=== PATIENT | male | born 1985 | race Caucasian/White ===

== ENCOUNTER 2025-09-22 05:58 | Emergency (ER) | payer BC, SELFPAY ==
[2025-09-22 06:07] VITALS: BP 126/88; PULSE 70; TEMP 36.9; O2SAT 96; BMI 35.9
--- OUTSIDE RECORDS SUMMARY | 2025-09-22 06:56 | XMS_ITS | Clinical Summary ---
Author Organization ApplyMap [facility] tem Address [facility] [place]-[id number] [address] [place] [address] Care Team Providers Care Histologist Technologist Name Role Phone Harjinder Salinas MD Primary Care Provider [phone] Allergies No known active allergies Medications MedicationSigDispense QuantityRefillsLast FilledStart DateEnd DateStatus albuterol (PROVENTIL HFA;VENTOLIN HFA) 90 mcg/actuation inhaler Inhale 2 puffs every 6 (six) hours as needed for wheezing or shortness of breath. 1 Inhaler 11101/01/2017Active SYMBICORT 160-4.5 mcg/actuation inhaler INHALE TWO PUFFS BY MOUTH TWICE A DAY 1 Inhaler 10001/08/2019Active Active Problems ProblemNoted DateDiagnosed DateSleep apnea, uejacgevfli44/27/2017Mild intermittent asthma without bnpoafahbuqa47/27/2017Tobacco /27/2017 Family History Medical HistoryRelationNameCommentsDiabetesFatherNo Known ProblemsMotherRelation NameStatusCommentsFatherAliveMotherAlive Social History Tobacco UseTypesPacks/DayYears UsedDateSmoking Tobacco: Every DaySmokeless Tobacco: Former Tobacco Cessation:Ready to Q uit: Not Asked; Counseling Given: Not Answered Alcohol UseStandard Drinks/WeekCommentsNo0 (1 standard drink = 0.6 oz pure alcohol)ChildcareAnswerDate IeyniiidBapncmyugSffswgu18/12/2019EmploymentAnswer Date UmurofqrZvgwowranmKphunwk31/12/2019Purpose - LifeAnswerDate RecordedPurpose and direction in extxSzivqzg98/11/2021ex and Gender InformationValueDate RecordedSex Assigned at BirthNot on fileLegal LqdSsso7506/10/2015 11:34 AM EDT Gender IdentityNot on fileSexual OrientationNot on file Last Filed Vital Signs Vital SignReadingTime TakenCommentsBlood Qkkfxgig802/8710/31/2017 9:56 AM EST Ljmyf828610/31/2017 9:56 AM ESTTemperature--Respiratory Oalx915201/01/2017 9:56 AM ESTOxygen Qkourwbcze45%10/31/2017 9:56 AM ESTInhaled Oxygen Concentration-- Pkftks546.7 kg (255 lb)04/22/2025 9:54 AM QYJIcbeez570.8 cm (5' 10 )04/22/2025 9:54 AM EDTBody Mass Index36.59004/22/2025 9:54 AM EDT Plan of Treatment Health MaintenanceDue DateLast DoneCommentsTobacco Ldcjyutdbq1987 Depression Rzrbxwgky54/31/1999Adult BMI Follow Up Plan2005DTaP,Tdap and Td Vaccines (1 - Tdap)2006Influenza Ffwovjk1907/06/2025dult BMI Screening Tobacco Keydetygh98 Medical Devices Not on file Insurance Care Teams Team MemberRelationshipSpecialtyStart DateEnd Date Harjinder Salinas MD PCP - [facility]11/26/19
--- NOTE | 2025-09-22 07:17 | CT_ITS ---
The [address] [address] Patient Name: KEITH KING MRN: [id number] date: 1985 Sex: M Assigned Patient Location: ED.MAIN Current Patient Location: ED.MAIN Accession/Order Number: [id number] Exam Date: 09/22/2025 07:44 Report Date: 09/22/2025 08:10 At the request of: OLVIN HAMMONDS MD Procedure: CT abdomen pelvis wo con CT ABDOMEN AND PELVIS WITHOUT CONTRAST COMPARISON: None CLINICAL DATA: Right flank pain since yesterday. Spiral axial unenhanced images were obtained through the abdomen and pelvis. This CT exam was performed using one or more following dose reduction techniques: Automated exposure control, adjustment of the mA and/or kV according to patient size, or use of iterative reconstruction technique. Limited cuts through the lung bases show atelectasis and/or scarring. Evaluation of the intra-abdominal organs is slightly limited by the absence of contrast. No calcified gallstones are identified. Fatty infiltration of the liver is suspected. The spleen is slightly prominent measuring 14.8 cm in craniocaudal dimension. The pancreas and adrenal glands show no acute abnormalities. A punctate stone is present at the superior pole the left kidney. There is minor right pelviectasis. There is no significant dilatation though minor periureteral stranding is seen on the right. This may be secondary to a 3 mm stone visualized just proximal to the ureterovesical junction. The abdominal aorta is normal caliber. Tiny abdominal lymph nodes are present. No ascites is seen. The small bowel loops are not dilated. There is mild right-sided colonic stool. The left colon is not as well distended and there are segments of apparent wall thickening. Levoscoliotic curvature and degenerative changes are visualized at the spine. There is also minimal anterolisthesis of L5 with respect to adjacent vertebra due to bilateral L5 pars defects. Images through the pelvis show normal caliber small bowel loops. The appendix is surgically absent. The distal colon is not well distended. There are some sigmoid diverticula, without associated active inflammation. The prostate is top normal in size. The urinary bladder is poorly distended and the wall appears thickened. There are mildly patulous inguinal rings containing fat. There is also atrophy of anterior pelvic wall muscles on the right where there may be some overlying subcutaneous scarring. No ascites is seen. CT/CT abdomen pelvis wo con IMPRESSION: FATTY LIVER. LEFT NEPHROLITHIASIS. DISTAL RIGHT URETERAL STONE WITH MINIMAL ASSOCIATED HYDRONEPHROSIS. UNDER DISTENDED URINARY BLADDER WITH APPARENT WALL THICKENING. DIVERTICULOSIS. Impression dictated by: Patience Conklin M.D. 09/22/2025 8:10 AM Dictation Location: [place] [address] Electronically authenticated by: [id number] Y Date: 09/22/2025 08:10
--- NOTE | 2025-09-22 07:18 | ED.GENADUL1 ---
HPI HPI - General Adult General Chief complaint: Abdominal Pain Stated complaint: R SIDED FLANK PAIN Time Seen by Provider: 09/22/25 07:12 Source: patient Mode of arrival: walk-in Limitations: no limitations History of Present Illness HPI narrative: 40-year-old male presents to the emergency department for right flank and abdominal pain. This started yesterday and was not precipitated by any trauma. The pain is now wrapping around towards the front and he is worried he might have a kidney stone. No gross hematuria or fever. He has been nauseous. His pain comes and goes. Related Data Previous Rx's ?Medication ?Instructions ?Recorded hydrocodone 5 mg-acetaminophen 325 1 tab PO Q6H PRN pain 5 days #20 09/22/25 mg tablet tabs ondansetron 4 mg disintegrating 4 mg PO Q6H PRN nausea and 09/22/25 tablet vomiting #20 tabs tamsulosin 0.4 mg capsule (Flomax) 0.4 mg PO DAILY #7 caps 09/22/25 Allergies Allergy/AdvReac Type Severity Reaction Status Date / Time No Known Drug Allergies Allergy Verified 09/22/25 06:12 Opioid HPI Opioid Management Most Recent Opioid Data: Last Pain Scale 7 Today, 06:07 Review of Systems ROS Narrative A ten point review of systems is negative except as noted above. PFSH PFSH Social History Little interest or pleasure in doing things: not at all Feeling down, depressed, or hopeless: not at all Exam Narrative Exam Narrative: Nurses note and vital signs reviewed General:The patient appears in no apparent distress.Patient is resting comfortably on cart. Skin:Warm, dry, no pallor noted.There is no rash noted. Head:Normocephalic, atraumatic Eye: Normal conjunctiva, no drainage Ears, Nose, Mouth, and Throat: oral mucosa is moist. Nares patent. Cardiovascular:Regular Rate and Rhythm Respiratory:Patient is in no distress, no accessory muscle use, lungs are clear to auscultation, no wheezing, rales or rhonchi Back:non-tender, no CVA tenderness bilaterally to percussion. GI: Soft and nontender. Remote scar from appendectomy present. Musculoskeletal: The patient has no evidence of calf tenderness, no pitting edema, symmetrical pulses noted bilaterally Neurological:A&O, normal speech Psychiatric:Cooperative Constitutional Vital Signs, click to edit/add: Last Vital Signs Temp 98.4 F 09/22/25 06:07 Pulse 70 09/22/25 06:07 Resp 18 09/22/25 06:07 BP 126/88 09/22/25 06:07 Pulse Ox 96 09/22/25 06:07 O2 Del Method Room Air 09/22/25 06:07 Course Vital Signs Vital signs: Vital Signs Temperature 98.4 F 09/22/25 06:07 Pulse Rate 70 09/22/25 06:07 Respiratory Rate 18 09/22/25 06:07 Blood Pressure 126/88 09/22/25 06:07 Pulse Oximetry 96 09/22/25 06:07 Oxygen Delivery Method Room Air 09/22/25 06:07 Temperature 98.4 F 09/22/25 06:07 Pulse Rate 70 09/22/25 06:07 Respiratory Rate 18 09/22/25 06:07 Blood Pressure 126/88 09/22/25 06:07 Pulse Oximetry 96 09/22/25 06:07 Oxygen Delivery Method Room Air 09/22/25 06:07 Medical Decision Making MDM Narrative Medical decision making narrative: 3 mm distal ureteral stone is identified on the right side. He is feeling more comfortable now and is able to be discharged home on Flomax and Cadott and Zofran. Follow-up with urology. Treatment diagnosis and follow-up were discussed with the patient. Differential Diagnosis Differential Diagnosis: Kidney stone, muscle pain Lab Data Lab results reviewed: Yes I reviewed the patient's lab results Labs: Lab Results 09/22/25 09/22/25 Range/Units 07:05 07:25 WBC 8.5 (4.0-11.0) 10^3/uL RBC 5.10 (4.70-6.10) 10^6/uL Hgb 15.4 (14.0-18.0) g/dL Hct 46.7 (42.0-54.0) % MCV 91.6 (80.0-94.0) fL MCH 30.2 (25.9-34.0) pg MCHC 33.0 (29.9-35.2) g/dL RDW 12.8 (11.0-15.0) % Plt Count 215 (150-450) 10^3/uL MPV 8.5 L (9.5-13.5) fL Neut % (Auto) 70.5 (43.0-75.0) % Lymph % (Auto) 17.4 L (20.5-60.0) % [place] % (Auto) 8.3 (1.7-12.0) % Eos % (Auto) 2.3 (0.9-7.0) % Baso % (Auto) 0.8 (0.2-2.0) % Neut # (Auto) 6.0 (1.4-6.5) 10^3/uL Lymph # (Auto) 1.5 (1.2-3.8) 10^3/uL [place] # (Auto) 0.7 (0.3-0.8) 10^3/uL Eos # (Auto) 0.2 (0.0-0.7) 10^3/uL Baso # (Auto) 0.1 (0.0-0.1) 10^3/uL Abs Immat Gran (auto) 0.06 H (0.00-0.03) 10^3/uL Imm/Tot Granulo (auto) 0.7 H (0.0-0.5) % Sodium 141 (136-145) mmol/L Potassium 4.1 (3.5-5.1) mmol/L Chloride 104 (98-107) mmol/L Carbon Dioxide 29.0 (21.0-32.0) mmol/L Anion Gap 12.1 BUN 21.0 H (7.0-18.0) mg/dL Creatinine 0.92 (0.70-1.30) mg/dL Est GFR ( Amer) >60 (>=60 mL/min/1.73m^2) Est GFR (Non-Af Amer) >60 (>=60 mL/min/1.73m^2) BUN/Creatinine Ratio 22.8 Glucose 117 H (74-106) mg/dL Calcium 9.1 (8.5-10.1) mg/dL Urine Color Yellow (YELLOW) Urine Clarity Clear (CLEAR) Urine pH 6.0 (5.0-9.0) Ur Specific [place] 1.020 (1.005-1.025) Urine Protein Negative (NEG/TRACE) mg/dL Urine Glucose (UA) Negative (NEGATIVE) mg/dL Urine Ketones Negative (NEGATIVE) mg/dL Urine Occult Blood Moderate A (NEGATIVE) Urine Nitrite Negative (NEGATIVE) Urine Bilirubin Negative (NEGATIVE) Urine Urobilinogen 1.0 (0.2-1.0) EU/dL Ur Leukocyte Esterase Negative (NEGATIVE) Urine RBC 0-2 (0-2) #/HPF Urine WBC 2-5 A (NONE SEEN) #/HPF Ur Squamous Epith Cells Few A (NONE/RARE) #/LPF Urine Crystals None seen (None Seen) #/HPF Urine Bacteria Trace A (NONE SEEN) #/HPF Urine Casts None seen (NONE SEEN) #/LPF Urine Mucus Small A (NONE SEEN) Imaging Data CT scan - abdomen: Radiologist's impression: ITS Impressions Abdomen/Pelvis CT 09/22/25 07:17 IMPRESSION: FATTY LIVER. LEFT NEPHROLITHIASIS. DISTAL RIGHT URETERAL STONE WITH MINIMAL ASSOCIATED HYDRONEPHROSIS. UNDER DISTENDED URINARY BLADDER WITH APPARENT WALL THICKENING. DIVERTICULOSIS. Impression dictated by: Patience Conklin M.D. 09/22/2025 8:10 AM Dictation Location: [place] [address] Electronically authenticated by: [id number] Y Date: 09/22/2025 08:10 Discharge Plan Discharge Chief Complaint: Abdominal Pain Clinical Impression: Kidney stone Patient Disposition: Home, Self-Care Time of Disposition Decision: 08:17 Condition: Good Mode of Transportation: Private Vehicle Prescriptions / Home Meds: New hydrocodone-acetaminophen 5-325 mg tablet 1 tab PO Q6H PRN (Reason: pain) 5 Days Qty: 20 0RF tamsulosin [Flomax] 0.4 mg capsule 0.4 mg PO DAILY Qty: 7 0RF ondansetron 4 mg tablet,disintegrating 4 mg PO Q6H PRN (Reason: nausea and vomiting) Qty: 20 0RF Print Language: Somali Instructions: Kidney Stones (ED), How to Strain Your Urine (ED) Referrals: Harjinder Salinas MD [Primary Care Provider, Family Practice] - 1 week Paul Francis MD [Physician, Urology]
[2025-09-22 07:33] LABS: Glucose Urine UA NEGATIVE (NEGATIVE)
[2025-09-22 07:33] LABS: Hematocrit 46.7 % (42.0-54.0); Hemoglobin 15.4 g/dL (14.0-18.0); Immature Granulocytes Abs Auto 0.06 10^3/uL (0.00-0.03); Immature Granulocytes Pct Auto 0.7 % (0.0-0.5); Lymphocytes Absolute Auto 1.5 10^3/uL (1.2-3.8); Mean Corpuscular HGB Conc 33.0 g/dL (29.9-35.2); Mean Corpuscular Hemoglobin 30.2 pg (25.9-34.0); Mean Corpuscular Volume 91.6 fL (80.0-94.0); Platelet Count 215 10^3/uL (150-450); Red Blood Count 5.10 10^6/uL (4.70-6.10); White Blood Count 8.5 10^3/uL (4.0-11.0)
[2025-09-22 07:43] LABS: Anion Gap 12.1; Blood Urea Nitrogen 21.0 mg/dL (7.0-18.0); Calcium 9.1 mg/dL (8.5-10.1); Carbon Dioxide 29.0 mmol/L (21.0-32.0); Chloride 104 mmol/L (98-107); Estimated GFR (African America >60 (>=60 mL/min/1.73m^2); Estimated GFR (Non-African Ame >60 (>=60 mL/min/1.73m^2); Glucose 117 mg/dL (74-106); Potassium 4.1 mmol/L (3.5-5.1); Sodium 141 mmol/L (136-145)
[2025-09-22 07:44] LABS: Cast Seen? NONE SEEN #/LPF (NONE SEEN); Crystals Seen? None Seen #/HPF (None Seen)
== END 2025-09-22 08:49 | disposition home or self-care (01) ==
PROVIDERS: Emergency Provider Emergency Medicine; PCP Family Medicine
DX: N20.0 Calculus of kidney (principal); Z90.49 Acquired absence of other specified parts of digestive tract
CPT/HCPCS: 36415; 74176; 80048; 81001; 85025; 99284